=== PATIENT | female | born 1960 | race Caucasian/White ===

== ENCOUNTER 2023-12-15 01:29 | Day surgery (SDC) | payer BC, SELFPAY ==
[2023-12-01 11:58] VITALS: BMI 20.4
[2023-12-15 07:47] VITALS: BP 113/70; PULSE 60; RESP 18; TEMP 36.2; O2SAT 100
[2023-12-15] MEDS: LACTATED RINGERS 1,000 ML 150 ML IV CONT (08:01)
--- NOTE | 2023-12-15 08:07 | WPDANESEPPF ---
Anes - Initial Pre Proc Eval Procedure: Operation Date: 12/15/23 09:00 Proposed Procedures p Screening Colonoscopy - Davy Tillman MD Date/Time: 12/15/23 08:07 Surgeon: Davy Tillman MD Pre Op Diagnosis: neoplasm screening Patient Data Age: 63 Gender: F Height: 1.63 m Weight: 52.6 kg Last Vital Signs Temp 97.2 F L 12/15/23 07:47 Pulse 60 12/15/23 07:47 Resp 18 12/15/23 07:47 BP 113/70 12/15/23 07:47 Pulse Ox 100 12/15/23 07:47 O2 Del Method Room Air 12/15/23 07:47 Allergies Allergy/AdvReac Type Severity Reaction Status Date / Time omeprazole AdvReac Unknown Gastrointestinal Verified 12/15/23 07:46 Upset Levaqvin AdvReac Severe Unknown Uncoded 12/15/23 07:46 Home Medications Medication Instructions Recorded Confirmed Type albuterol sulfate 90 mcg/actuation 1 puff inhalation Q4H PRN 01/23/23 12/01/23 Rx aerosol inhaler shortness of breath or wheezing #8.5 grams fluticasone propionate 50 1 spray intranasal DAILY 01/23/23 12/01/23 History mcg/actuation nasal spray,suspension Patient hx anesthesia problems: none Family hx anesthesia problems: none Results Review: All pre-operative results and documents have been reviewed as part of the pre-operative evaluation. 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 Danilo Mireles Family history of GERD GERD (gastroesophageal reflux disease) Surgical History Surgical History History of ear surgery History of lung surgery Family History Family History Mother Asthma Sibling Asthma Social History Social History Smoking status: Never smoker Drinks per week: 1 Substance use: never Substance use type: does not use Lack of Transportation: No Lack of Food: Never True Current Housing: I Have Housing Concerned About Future Housing: No Difficulty Paying Gas/Electric Bills: No Difficulty Paying for Meds: No Currently Unemployed: No Difficulty w/ Childcare or Family Care: No Living arrangements: with family Occupation/Education: occupation 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 Informed Consent: The patient's anesthetic plan and its attendant risks and benefits were discussed with the patient/family/POA. Questions were solicited and answers provided to the satisfaction of the patient/family/POA.
--- NOTE | 2023-12-15 08:54 | PM.HPGS ---
History of Present Illness History of Present Illness Consent: Risks, benefits, and alternatives have been discussed and questions answered. Patient agrees to proceed with procedure. 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 Danilo Mireles Colon cancer screening Family history of GERD GERD (gastroesophageal reflux disease) Surgical History Surgical History History of ear surgery History of lung surgery Family History Family History Mother Asthma Sibling Asthma Social History Social History Smoking status: Never smoker Drinks per week: 1 Substance use: never Substance use type: does not use Lack of Transportation: No Lack of Food: Never True Current Housing: I Have Housing Concerned About Future Housing: No Difficulty Paying Gas/Electric Bills: No Difficulty Paying for Meds: No Currently Unemployed: No Difficulty w/ Childcare or Family Care: No Living arrangements: with family Occupation/Education: occupation 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 Gender identity (if verbalized by the patient): Female Spiritual care concerns: No Meds Home Medications and Allergies Home Medications Medication Instructions Recorded Confirmed Type albuterol sulfate 90 mcg/actuation 1 puff inhalation Q4H PRN 01/23/23 12/01/23 Rx aerosol inhaler shortness of breath or wheezing #8.5 grams fluticasone propionate 50 1 spray intranasal DAILY 01/23/23 12/01/23 History mcg/actuation nasal spray,suspension Allergies Allergy/AdvReac Type Severity Reaction Status Date / Time omeprazole AdvReac Unknown Gastrointestinal Verified 12/15/23 07:46 Upset Levaqvin AdvReac Severe Unknown Uncoded 12/15/23 07:46 Vital Signs Vital Signs - 24 hr 12/15/23 07:47 Temperature 97.2 F L Pulse Rate 60 Respiratory Rate 18 Blood Pressure 113/70 Pulse Oximetry 100 Oxygen Delivery Room Air Exam Const: General: comfortable and no acute distress HENMT: Face/Nose/Sinus: Normal nares present Eyes: General: appearance normal, both eyes and all related structures Neck: Neck: no JVD Resp: Auscultation: clear to auscultation bilaterally Cardio: Rate: regular rate Rhythm: regular rhythm GI: Inspection: non-distended GI Palp: Yes Soft to palpation Skin: General skin exam: normal color Neuro: General: gait normal Speech: normal speech Extrem: General: normal to inspection Psych: Mental Status: mental status grossly normal Assessment and Plan Assessment and plan (1) Colon cancer screening: Code(s): Z12.11 - Encounter for screening for malignant neoplasm of colon Status: Acute Assessment and Plan: colonoscopy
[2023-12-15 09:09] VITALS: BP 79/48; PULSE 62; RESP 13; O2SAT 100
[2023-12-15 09:19] VITALS: BP 94/73; PULSE 66; RESP 17; O2SAT 100
[2023-12-15 09:29] VITALS: BP 99/69; PULSE 64; RESP 23; O2SAT 100
[2023-12-15] MEDS: DICLOFENAC SODIUM 0.1% OPHTH SOLN 2.5 ML BOTTLE 1 DROP EACH EYE (09:40)
[2023-12-15] MEDS: PROPARACAINE HCL 0.5% 15 ML OPHTH SOLN 1 DROP EACH EYE (09:40)
== END 2023-12-15 09:49 | disposition home or self-care (01) ==
PROVIDERS: PCP Physician Assistant Medical; Visit Provider Internal Medicine Gastroenterology
PROC: 0DJD8ZZ Inspection of Lower Intestinal Tract, Via Natural or Artificial Opening Endoscopic (ICD-10-PCS; CPT 45378; principal; 2023-12-15 09:00)
DX: Z12.11 Encounter for screening for malignant neoplasm of colon (principal); K64.8 Other hemorrhoids; J45.909 Unspecified asthma, uncomplicated; K21.9 Gastro-esophageal reflux disease without esophagitis
CPT/HCPCS: 45378; A9270; J2704; J7120